=== PATIENT | female | born 1965 | race Caucasian/White ===

== ENCOUNTER 2018-05-28 14:39 | Emergency (ER) | payer MEDICAID, OTHER ==
[~2018-05-28] VITALS: Ht 167.6 cm; Wt 93.2 kg
[~2018-05-28 14:39] MED LIST: FERR1TAB45 PO
[2018-05-28 17:53] LABS: GLUCOSE,POINT OF CARE 90 MG/DL (70-110)
[2018-05-28] MEDS ORDERED: KETOROLAC TROMETHAMINE 60 MG/2 ML VIAL IM ONE (18:15)
[2018-05-28] MEDS ORDERED: HYDROCODONE/ACETAMINOPHEN 5-325 MG TABLET PO ONE (18:15)
[2018-05-28 18:17] VITALS: BP 141/100
== END 2018-05-28 18:19 | disposition home or self-care (01) ==
LOC: EMS 14:41
DX: M17.12 Unilateral primary osteoarthritis, left knee (principal); J45.909 Unspecified asthma, uncomplicated; Z87.440 Personal history of urinary (tract) infections
CPT/HCPCS: 82962; 96372; 99283; J1885